=== PATIENT | male | born 1945 | race Caucasian/White ===

== ENCOUNTER 2018-02-22 07:23 | Outpatient (CLI) | payer MEDICARE, OTHER ==
--- NOTE | 2018-02-22 11:16 | XRAY Report ---
Reason: PAIN IN RIGHT KNEE Procedure Date: 02/22/2018 Accession Number: [id number] / [id number] Procedure: XR - Knee 3 View RT CPT Code: FULL RESULT: EXAM: RIGHT KNEE RADIOGRAPHY EXAM DATE: 02/22/2018 07:26 AM. CLINICAL HISTORY: Pain in right knee. COMPARISON: None. TECHNIQUE: 3 views. FINDINGS: Bones: Normal. No fractures or bone lesions. Joints: Mild to moderate narrowing of the weightbearing femorotibial compartments, medial predominance. No joint effusion. Soft Tissues: Normal. No soft tissue swelling. IMPRESSION: Mild to moderate osteoarthrosis. [facility]
== END 2018-02-22 07:24 | disposition home or self-care (01) ==
LOC: DI 07:23
PROVIDERS: ATTEND Family Medicine
DX: M17.11 Unilateral primary osteoarthritis, right knee (principal)

== ENCOUNTER 2018-02-24 08:24 | Outpatient (CLI) | payer MEDICARE, OTHER ==
--- NOTE | 2018-02-24 17:05 | MRI Report ---
Reason: PAIN IN RIGHT KNEE Procedure Date: 02/24/2018 Accession Number: [id number] / [id number] Procedure: MRI - Knee RT W/O CPT Code: FULL RESULT: EXAM: RIGHT KNEE MRI WITHOUT CONTRAST EXAM DATE: 02/24/2018 09:20 AM. CLINICAL HISTORY: Right knee pain posteriorly. COMPARISON: 02/22/2018 radiograph. TECHNIQUE: Multiplanar, multisequence T1-weighted and fluid-sensitive sequences of the knee without contrast. Other: None. FINDINGS: Bones: No fractures or subluxations. No marrow edema. No bone lesions. Minimal tricompartmental osteophytes are present. Articular Cartilage: There is a full-thickness fissure of the central patellar cartilage. The trochlear cartilage is intact. The medial compartment articular cartilage demonstrates moderate thinning. A focal area of full-thickness cartilage loss of the inferior lateral femoral condyle measures 7 x 13 mm. Medial Meniscus: The posterior horn of the medial meniscus demonstrates a horizontal tear (series 901, image 6). A parrot-beak tear is at the inner margin of the posterior horn as well. Lateral Meniscus: The undersurface of the posterior horn of the lateral meniscus has at least a partial thickness horizontal tear (series 901, images 19 through 22). Cruciate Ligaments: The anterior and posterior cruciate ligaments are intact. Collateral Ligaments: The medial collateral and lateral collateral ligamentous structures are intact. Tendons: The quadriceps, patellar, semimembranosus, and popliteus tendons are unremarkable. Musculature: No edema or fatty atrophy. Other: A mild effusion is present. No popliteal cyst. No loose bodies. The medial and lateral retinacula are intact. Prepatellar subcutaneous edema is present. IMPRESSION: 1. Minimal osteoarthritis. 2. Tearing of the medial and lateral menisci. 3. Mild knee effusion. [facility] MUSCULOSKELETAL RADIOLOGY SECTION
== END 2018-02-24 08:25 | disposition home or self-care (01) ==
LOC: DI 08:24
PROVIDERS: ATTEND Family Medicine
DX: M17.11 Unilateral primary osteoarthritis, right knee (principal); M25.461 Effusion, right knee; S83.281A Other tear of lateral meniscus, current injury, right knee, initial encounter; S83.241A Other tear of medial meniscus, current injury, right knee, initial encounter

== ENCOUNTER 2019-06-22 07:53 | Outpatient (CLI) | payer MEDICARE, OTHER ==
[2019-06-23 12:14] LABS: HEPATITIS C ANTIBODY NON-REACTIVE (NON-REACTIVE)
== END 2019-06-22 07:54 | disposition home or self-care (01) ==
LOC: LAB.S 07:53
PROVIDERS: ATTEND Family Medicine
DX: Z12.5 Encounter for screening for malignant neoplasm of prostate (principal); Z11.59 Encounter for screening for other viral diseases
CPT/HCPCS: 36415; 86803; G0103; 84153

== ENCOUNTER 2019-09-08 06:35 | Outpatient (CLI) | payer MEDICARE, OTHER ==
--- NOTE | 2019-09-08 09:39 | Ultrasound Report ---
PROCEDURE: Bladder INDICATIONS: LUTS W/BPH TECHNIQUE: Multilevel sonographic images of the bladder were obtained. COMPARISON: None. FINDINGS: Prevoid volume 2 61 cc. Postvoid residual 1 16 cc. Prostate is enlarged measuring 30 x 42 x 60 cm. Vo lume of 50.4 cc. Bilateral ureteral jets are identified. No bladder masses are identified. IMPRESSION: 1. Prominent post void residual with enlarged prostate as above. Recommend correlation to PSA levels. Reviewed by: Dee Dee Pickering MD on 09/08/2019 9:38 AM PDT Approved by: Dee Dee Pickering MD on 09/08/2019 9:38 AM PDT Station ID: [id number]
--- NOTE | 2019-09-08 09:40 | Ultrasound Report ---
PROCEDURE: Aorta Screening INDICATIONS: SCREENING FOR AAA TECHNIQUE: Real time scanning was performed of the aorta and iliac arteries, with image documentatio n. COMPARISON: None FINDINGS: Aorta: Proximal aortic diameter measures 2.6 x 2.4 cm. Mid-aorta measures 2.2 x 2.0 cm. Distal aor tic diameter is 1.7 x 1.6 cm. Iliac arteries: Right common iliac artery measures 1.1 x 1.1 cm. Left common iliac artery measures 1.2 x 1.0 cm. IMPRESSION: No gross aneurysmal dilation. Reviewed by: Dee Dee Pickering MD on 09/08/2019 9:39 AM PDT Approved by: Dee Dee Pickering MD on 09/08/2019 9:39 AM PDT Station ID: [id number]
== END 2019-09-08 06:36 | disposition home or self-care (01) ==
LOC: DI 06:35
PROVIDERS: ATTEND Family Medicine
DX: Z13.6 Encounter for screening for cardiovascular disorders (principal); N40.1 Benign prostatic hyperplasia with lower urinary tract symptoms; F17.290 Nicotine dependence, other tobacco product, uncomplicated
CPT/HCPCS: 76706; 76857

== ENCOUNTER 2020-07-22 09:30 | Outpatient (CLI) | payer MEDICARE ==
[2020-07-22 12:30] VITALS: BP 160/80
--- NOTE | 2020-07-22 12:30 | SLEEP CARE CONSULTATION ---
Information from patient questionnaire entered by Samantha Alejandre. I have reviewed and concur with the information entered by Samantha Alejandre. This document represents the service I personally performed and the decisions made by me, Bean Haney MD, [facility]. History of Present Illness Service Date and Time: 07/22/2020 0930 Reason for Visit: New patient, Previously diagnosed sleep apnea, sleep apnea on CPAP therapy Chief Complaint: reports: Other (need new CPAP prescription) Usual bedtime: 8 pm Time it takes to fall asleep: 10 min Snores at night: Yes Observed to quit breathing while asleep: No Sleeps alone due to snoring: Yes Number of times waking at night: maybe once Reasons for waking at night: reports: Other (too hot) Toss, Turn, or Twitch while sleeping: No Recalls having dreams: Yes Usually gets out of bed at: 4:30 am Morning headache: No Sleepy or fatigued during the day: Yes Ever fallen asleep while driving: No Takes day naps: Yes Dreams during day naps: No Prior sleep studies: Yes Year and Where: 2005 - [place], [place] Additional HPI information: I had the pleasure of seeing Mr. Greer today regarding obstructive sleep apnea-hypopnea. As you know, he is a 75 year old gentleman who was diagnosed with the sleep-disordered breathing at [facility] in [place] about 5 years ago. The AHI was 27.1. He was prescribed a CPAP device set at 5 15 cmH2 O. He uses every night and all night. The compliance data show usage in 164 out of the past 180 nights, averaging 8.1 hours a night. The > 4 hour compliance rate for the past 30 days is 100%. 91%. The residual AHI is 1.1 and average air leak is 11.4 L/minute. He wears a Respironics DreamWear nasal cushion mask. He gets his supplies from [employer]. He finds the treatment helpful in that he does not snore at all. - Parasomnia Symptoms Ever been unable to move upon waking from sleep: No Walks in sleep: No Talks in sleep: No Ever acted out dreams in sleep: No Ever felt weak in the knees when startled or emotional: No Bothered by creepy, crawly, restless sensations in legs: No Problems with memory or concentration: No CPAP Compliance Data - Data Reviewed with Patient Average duration of nightly device use: 8 hr 7 min Compliance rate %: 91 (180 days) Current pressure setting (cmH2O): 5-15 Average residual AHI: 1.1 Subjective Initial Brady Sleepiness Scale score: 6 (in 2020) Past Medical History Past Medical History: reports: Hypertension, Arrythmia Social History The patient's occupation is a Retired. Patient is and lives in [place]. Have you smoked in the past 12 months: No Cigarettes per day (20/pack): 30 Years of smokin Quit date: 1979 Smoking Pack Years: 24.0 Alcohol use: Yes Alcohol amount and frequency: 2 drinks 3 days a week Caffeine use: Yes Caffeine amount and frequency: 1 cup almost daily Family History Family history of sleep disordered breathing: No Allergies and Home Medications Drug allergies reviewed: Yes Home medication list reviewed: Yes Review of Systems Weight gain over past 5 years: 25 Cardiovascular: reports: high blood pressure, palpitations, chest pain Respiratory: reports: shortness of breath Gastrointestinal: denies: heartburn, difficulty swallowing, nausea, vomitting, diarrhea, abdominal pain, other Urinary: reports: frequency, urgency Neurological: denies: headaches, seizure, head trauma, disorientation, speech dysfunction, gait or balance problems, fainting or unconsciousness, other Psychiatric: reports: other (PTSD) Ear/Nose/Throat: reports: wisdom teeth removed Endocrine: denies: thyroid disease, history of goiter, sluggishness, too hot or cold, excessive thirst, increased appetite, increased urination, unexplained weakness, other Musculoskeletal: reports: neck pain Immunologic: reports: other (Bee stings) Physical Exam Vital signs obtained and entered by: Dr. Haney Blood Pressure: 160/80 Cuff size: regular Heart Rate: 73 O2 Saturation: 99 Height: 6 ft Weight: 250 lb Body Mass Index: 33.9 BMI Classification: Obese Neck circumference: 18.5 Mood/affect: normal HEENT: No craniofacial malformation Impression and Plan IMPRESSION: 1. Obstructive Sleep Apnea-Hypopnea Syndrome, moderate, as previously diagnosed. Narrow oropharynx and obesity are common predisposing factors for obstructive sleep apnea-hypopnea syndrome. The patient has had good treatment compliance all along. The current pressure setting appears effective and comfortable. Because the CPAP is now older than the useful life of 5 years, I will order the patient a new one and make it an autoCPAP set between 5 and 15 cmH2O. Plan: 1. Prescription made for an autoCPAP, heated humidifier, and related supplies. 2. Try to lose weight. 4. Return for follow up after one month of using the CPAP. Counseling Topics: Weight control Visit Type: In Office Time Spent with Patient (minutes): 15 Provider Statement: I spent 100% of the Face to Face Visit with the patient with greater than 50% spent counseling the patient and coordination of care.
== END 2020-07-22 09:31 | disposition home or self-care (01) ==
LOC: SC 09:30
PROVIDERS: ATTEND Internal Medicine Pulmonary Disease
DX: G47.33 Obstructive sleep apnea (adult) (pediatric) (principal); E66.9 Obesity, unspecified; Z68.33 Body mass index [BMI] 33.0-33.9, adult
CPT/HCPCS: 99202; G0463; 99212

== ENCOUNTER 2021-07-28 06:20 | Outpatient (CLI) | payer MEDICARE | END 2021-07-28 06:21 | disposition critical access hospital (66) | LOC: EMS 06:20 | DX: R53.1 Weakness (principal); R47.89 Other speech disturbances | CPT/HCPCS: A0425; A0429 ==

== ENCOUNTER 2021-07-28 06:49 | Emergency (ER) | payer MEDICARE, OTHER ==
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
[2021-07-28] MEDS ORDERED: IOPAMIDOL-300 100 ML VIAL ONE (07:17)
[2021-07-28 07:23] LABS: BASOPHILS # (AUTO) 0.1 10^3/uL (0.0-0.1); BASOPHILS % (AUTO) 0.9 %; EOSINOPHILS # (AUTO) 0.4 10^3/uL (0.0-0.7); EOSINOPHILS % (AUTO) 5.6 %; HCT - HEMATOCRIT 47.9 % (42.0-52.0); LYMPHOCYTES # (AUTO) 1.2 10^3/uL (1.5-3.5); LYMPHOCYTES % (AUTO) 15.5 %; MEAN CORPUSCULAR HEMOGLOBIN 31.3 pg (27.0-31.0); MEAN CORPUSCULAR HGB CONC 33.4 g/dL (32.0-36.0); MEAN CORPUSCULAR VOLUME 93.6 fL (80.0-94.0); MEAN PLATELET VOLUME 10.2 fL (7.4-11.4); MONOCYTES # (AUTO) 0.7 10^3/uL (0.0-1.0); MONOCYTES % (AUTO) 8.9 %; NEUTROPHILS # (AUTO) 5.3 10^3/uL (1.5-6.6); PLT - PLATELET COUNT 216 10^3/uL (130-450); RED BLOOD COUNT 5.12 10^6/uL (4.70-6.10); RED CELL DISTRIBUTION WIDTH 13.6 % (12.0-15.0); WHITE BLOOD COUNT 7.7 x10^3/uL (4.8-10.8)
[2021-07-28 07:25] LABS: ALBUMIN/GLOBULIN RATIO 1.3 (1.0-2.2); BILIRUBIN,TOTAL 1.2 mg/dL (0.2-1.0); CALCIUM 9.1 mg/dL (8.5-10.3); CREATININE 1.4 mg/dL (0.6-1.2); POTASSIUM 4.2 mmol/L (3.5-5.0); TOTAL PROTEIN 7.2 g/dL (6.7-8.2)
[2021-07-28] MEDS ORDERED: IOPAMIDOL-300 100 ML VIAL IVP ONE (07:58)
--- NOTE | 2021-07-28 08:10 | CT Report ---
PROCEDURE: Head W/O Stroke Protocol INDICATIONS: unilateral weakness TECHNIQUE: Noncontrast 4.5 mm thick angled axial sections acquired from the foramen magnum to the vertex, with c oronal reformats. For radiation dose reduction, the following was used: automated exposure control, adjustment of mA and/or kV according to patient size. COMPARISON: FINDINGS: Image quality: Excellent. CSF spaces: Basal cisterns are patent. No extra-axial fluid collections. Ventricles are normal in size and shape. Brain: No midline shift. No intracranial masses or hemorrhage. Collins-white matter interface is norm al. Age-related volume loss and mild small vessel ischemic change. Skull and face: Calvarium and visualized facial bones are intact, without suspicious lesions. Sinuses: Visualized sinuses and mastoids are clear. IMPRESSION: 1. Age-related volume loss small vessel ischemic change, age appropriate. 2. No evidence of acute process. Findings are concordant with preliminary interpretation provided by [facility]. Prelimin uri findings by the initial interpreting radiologist were conveyed to the emergency department on 07/28 at 0731 hours This study fulfills neurological imaging criteria for inclusion or exclusion of acute stroke therapie s based on available published neurological imaging guidelines. Reviewed by: Jan Segovia MD on 07/28/2021 8:09 AM PDT Approved by: Jan Segovia MD on 07/28/2021 8:09 AM PDT Station ID: [id number]
--- NOTE | 2021-07-28 08:24 | CT Report ---
PROCEDURE: ANGIO HEAD W/WO INDICATIONS: unilateral weakness CONTRAST: IV CONTRAST: Isovue 300 ml: 80 PO CONTRAST: *NO PO CONTRAST TECHNIQUE: Precontrast 4.5 mm thick angled axial sections acquired from the foramen magnum to the vertex. Afte r the administration of intravenous contrast, 1 mm thick sections acquired through the [place] of [place] is. Postcontrast 4.5 mm thick sections then re-acquired from the foramen magnum to the vertex. 3-di mensional uibrcak-fjwpndrra-pkkotuhgpz (MIP) and/or volume rendering reformats were acquired of the c entral intracranial vasculature. For radiation dose reduction, the following was used: automated ex posure control, adjustment of mA and/or kV according to patient size. COMPARISON: CTA neck from the same date, noncontrast CT head from the same date. FINDINGS: Image quality: Excellent. Anterior circulation: Intracranial internal carotid arteries are normal in size and flow. The flow within the paired anterior cerebral arteries is normal and symmetric. The flow within the middle cer ebral arteries is normal and symmetric. The anterior communicating artery is seen. No aneurysms are seen. Posterior circulation: Visualized portions of the vertebral arteries demonstrate normal caliber, and join to form a normal appearing basilar artery. Flow within the posterior cerebral arteries is norm al and symmetric. No aneurysms are seen. CSF spaces: Ventricles are normal in size and shape. Basal cisterns are patent. No extra-axial flu id collections. Brain: No midline shift. No intracranial bleeds or masses. Collins-white matter interface appears int act. Age-related volume loss and small vessel ischemic change. Skull and face: Calvarium and facial bones appear intact, without suspicious lesions. Sinuses: There is mucosal thickening involving the bilateral ethmoids as well as the maxillary sinuse s and frontal sinuses. IMPRESSION: 1. Unremarkable CTA head. No aneurysm, occlusion, or focal filling defect. 2. No evidence acute stroke, hemorrhage, or mass. 3. Chronic sinusitis. Above discussed with RAJWINDER BARRETO at the time of dictation on 07.28.21 at 08:18 hours. Reviewed by: Jan Segovia MD on 07/28/2021 8:23 AM PDT Approved by: Jan Segovia MD on 07/28/2021 8:23 AM PDT Station ID: [id number]
--- NOTE | 2021-07-28 08:24 | CT Report ---
PROCEDURE: ANGIO NECK W INDICATIONS: unilateral weakness CONTRAST: IV CONTRAST: Isovue 300 ml: 80 PO CONTRAST: *NO PO CONTRAST TECHNIQUE: After the administration of intravenous contrast, 1.5 mm axial sections acquired from the aortic arch to the [place] of [place]. Coronal 3-D maximum intensity projection (MIP) and/or volume rendering ref ormats were then performed. For radiation dose reduction, the following was used: automated exposur e control, adjustment of mA and/or kV according to patient size. COMPARISON: None. FINDINGS: Image quality: Excellent. Carotid system: The great vessels demonstrate a conventional anatomy as they arise from the aortic a rch. The origins of the common carotid arteries appear patent. The common carotid arteries demonstr ate normal calibers and courses. The bifurcation regions appear normal bilaterally. There is a sever e stenosis of the proximal left internal carotid artery which is soft plaque containing small ulcer. It begins at the carotid bifurcation and extends into the proximal internal carotid artery. It is emanuel roximately 80%. There is a mild, nonflow limiting proximal right internal carotid artery. It is less than 50%. Posterior circulation: The origins of the vertebral arteries appear patent. The more superior porti ons of the vertebral arteries demonstrate normal course and caliber. They join to form a normal appe aring basilar artery. Soft tissues: Visualized neck soft tissues demonstrate no suspicious abnormalities. Visualized thyr oid unremarkable. Bones: No suspicious bony lesions. Visualized cervical spine appears normally aligned. IMPRESSION: 1. Severe left internal carotid artery stenosis, with soft plaque containing small ulcer, measuring a pproximately 80%. 2. Mild, less than 50% proximal right internal carotid artery stenosis. Above discussed with RAJWINDER BARRETO at the time of dictation on 07.28.21 at 08:18 hours. The estimate of stenosis included in the report of the imaging study was calculated using the NASCET method CLINICAL RECOMMENDATION STATEMENTS: In patients <35 years with an ITN detected on CT, MRI, or extrathyroidal ultrasound, the Committee re commends further evaluation with dedicated thyroid ultrasound if the nodule is "e1 cm and has no susp icious imaging features, and if the patient has normal life expectancy. In patients "e35 years with an ITN detected on CT, MRI, or extrathyroidal ultrasound, the Committee r ecommends further evaluation with dedicated thyroid ultrasound if the nodule is "e1.5 cm and has no s uspicious imaging features, and if the patient has normal life expectancy. (ACR, 2014) Reviewed by: Jan Segovia MD on 07/28/2021 8:22 AM PDT Approved by: Jan Segovia MD on 07/28/2021 8:22 AM PDT Station ID: [id number]
[2021-07-28] MEDS ORDERED: ASPIRIN CHEW 81 MG TABLET PO STA (08:58)
[2021-07-28] MEDS ORDERED: CLOPIDOGREL 75 MG TABLET PO STA (08:58)
[2021-07-28] MEDS ORDERED: SODIUM CHLORIDE 0.9% 1,000 ML IV STA (08:58)
[2021-07-28 18:18] VITALS: BP 177/106
== END 2021-07-28 18:37 | disposition short-term general hospital (02) ==
LOC: EDUNIT# → ED 06:49
DX: I65.22 Occlusion and stenosis of left carotid artery (principal); I10 Essential (primary) hypertension
CPT/HCPCS: 36415; 70450; 70496; 70498; 80053; 83690; 85025; 87635; 93005; 99284; 99285; A9270; Q9967

== ENCOUNTER 2021-07-28 18:28 | Outpatient (CLI) | payer MEDICARE | END 2021-07-28 18:29 | disposition short-term general hospital (02) | LOC: EMS 18:28 | PROVIDERS: ATTEND Emergency Medicine | DX: I65.23 Occlusion and stenosis of bilateral carotid arteries (principal) | CPT/HCPCS: A0425; A0428 ==

== ENCOUNTER 2021-08-04 21:20 | Outpatient (CLI) | payer MEDICARE | END 2021-08-04 21:21 | disposition short-term general hospital (02) | LOC: EMS 21:20 | DX: R07.89 Other chest pain (principal) | CPT/HCPCS: A0425; A0427 ==

== ENCOUNTER 2021-12-03 10:57 | Outpatient (CLI) | payer MEDICARE, OTHER ==
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
== END 2021-12-03 10:58 | disposition home or self-care (01) ==
LOC: DI.S 10:57
PROVIDERS: ATTEND Internal Medicine
DX: R93.89 Abnormal findings on diagnostic imaging of other specified body structures (principal); M47.816 Spondylosis without myelopathy or radiculopathy, lumbar region

== ENCOUNTER 2023-02-22 07:47 | Outpatient (CLI) | payer MEDICARE, OTHER ==
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
[2023-02-22 15:42] LABS: BASOPHILS # (AUTO) 0.1 10^3/uL (0.0-0.1); BASOPHILS % (AUTO) 0.8 %; EOSINOPHILS # (AUTO) 0.5 10^3/uL (0.0-0.7); EOSINOPHILS % (AUTO) 5.9 %; HCT - HEMATOCRIT 52.6 % (42.0-52.0); HGB - HEMOGLOBIN 16.5 g/dL (14.0-18.0); LYMPHOCYTES # (AUTO) 1.4 10^3/uL (1.5-3.5); MEAN CORPUSCULAR HEMOGLOBIN 30.6 pg (27.0-31.0); MEAN CORPUSCULAR HGB CONC 31.4 g/dL (32.0-36.0); MEAN CORPUSCULAR VOLUME 97.6 fL (80.0-94.0); MONOCYTES # (AUTO) 0.7 10^3/uL (0.0-1.0); MONOCYTES % (AUTO) 9.6 %; NEUTROPHILS % (AUTO) 65.4 %; PLT - PLATELET COUNT 245 10^3/uL (130-450); RED BLOOD COUNT 5.39 10^6/uL (4.70-6.10); RED CELL DISTRIBUTION WIDTH 13.7 % (12.0-15.0); WHITE BLOOD COUNT 7.7 x10^3/uL (4.8-10.8)
[2023-02-22 15:53] LABS: ESTIMATED AVERAGE GLUCOSE 108 mg/dL (70-100); HEMOGLOBIN A1c% 5.4 % (4.27-6.07)
[2023-02-22 16:16] LABS: ALBUMIN 4.4 g/dL (3.2-5.5); ALBUMIN/GLOBULIN RATIO 1.5 (1.0-2.2); ALKALINE PHOSPHATASE 92 IU/L (42-121); ALT ALANINE AMINOTRANSFERASE 33 IU/L (10-60); AST ASPARTATE AMINOTRANSFERASE 27 IU/L (10-42); BILIRUBIN,TOTAL 1.5 mg/dL (0.2-1.0); BUN - BLOOD UREA NITROGEN 23 mg/dL (6-20); CALCIUM 9.7 mg/dL (8.5-10.3); CARBON DIOXIDE - CO2 29 mmol/L (21-32); CHLORIDE 105 mmol/L (101-111); CHOLESTEROL 158 mg/dL; CREATININE 1.2 mg/dL (0.6-1.3); GFR - MDRD 59 (>89); GLUCOSE 89 mg/dL (74-104); HDL CHOLESTEROL 52 mg/dL; LDL CHOLESTEROL,CALCULATED 75 mg/dL; LDL/HDL RATIO 1.4 (<3.6); POTASSIUM 4.5 mmol/L (3.5-4.5); SODIUM 139 mmol/L (135-145); TOTAL PROTEIN 7.3 g/dL (6.4-8.9); TRIGLYCERIDES 156 mg/dL (48-352); VLDL CHOLESTEROL 31 mg/dL
[2023-02-22 16:53] LABS: THYROID STIMULATING HORMONE 2.37 uIU/mL (0.34-5.60)
== END 2023-02-22 07:48 | disposition home or self-care (01) ==
LOC: DI.S 07:47
PROVIDERS: ATTEND Internal Medicine
DX: M54.50 Low back pain, unspecified (principal); R53.83 Other fatigue; I63.9 Cerebral infarction, unspecified; M51.36 Other intervertebral disc degeneration, lumbar region; M51.35 Other intervertebral disc degeneration, thoracolumbar region; Z18.10 Retained metal fragments, unspecified
CPT/HCPCS: 36415; 80053; 80061; 83036; 83721; 84443; 85025

== ENCOUNTER 2023-04-21 10:56 | Outpatient (CLI) | payer MEDICARE, OTHER | END 2023-04-21 10:57 | disposition home or self-care (01) | LOC: LAB.S 10:56 | PROVIDERS: ATTEND Internal Medicine | DX: Z12.5 Encounter for screening for malignant neoplasm of prostate (principal) | CPT/HCPCS: 36415; G0103; 80053; 80061; 83036; 83721; 84153; 84443; 85025 ==

== ENCOUNTER 2023-05-03 08:55 | Outpatient (CLI) | payer MEDICARE, OTHER ==
--- NOTE | 2023-05-03 20:15 | SLEEP CARE CONSULTATION ---
Information from patient questionnaire entered by Jonathan Bella. I have reviewed and concur with the information entered by Jonathan Bella. This document represents the service I personally performed and the decisions made by me, Bean Haney MD, [facility]. History of Present Illness Service Date and Time: 05/03/2023 0855 Reason for follow up: annual (LAST SEEN 06/2020) Equipment type: CPAP (RESMED NEED MACHINE) Prior sleep studies: Yes Year and Where: 2005 - , [place] HPI additional information: Mr. Greer was diagnosed with moderate obstructive sleep apnea-hypopnea syndrome and returns today for follow up of CPAP therapy. The patient purchased the [employer] Respironics DreamStation 2 autoCPAP from [employer] and was fitted with a Respironics DreamWear nasal cushion mask. He uses the device nightly and all through the night. The compliance report shows that he uses the device 322 nights out of the past 365 nights, averaging 7.8 hours a night. The > 4 hour compliance rate for the past 365 days is 89%. He complains of no particular problem with the device such as soreness on the face, dry nose, epistaxis, nasal congestion or headache. He thinks that the pressure of 5 - 15 cmH2O is comfortable. On the CPAP therapy he notices improvement in his sleep quality, and that he wakes up feeling fresher in the morning and more awake/alert during the day. His notices no snore at all. [place] Sleepiness Scale score is 2. The average residual AHI is 2.9; and average time in large leak per day is 1 minute a night. The 90th percentile pressure is 8.4 cmH2O. Sleep Study - Results Prior sleep studies: Yes Year and Where: 2005 - , [place] Subjective Initial [place] Sleepiness Scale score: 6 (in 2020) Current [place] Sleepiness Scale score: 2 (05/03/23) Allergies and Home Medications Drug allergies reviewed: Yes Home medication list reviewed: Yes Allergy and home medication list: Allergies No Known Drug Allergies Allergy (Verified 04/30/23 09:41) Review of Systems Review of systems same as previous: Yes Physical Exam Vital signs obtained and entered by: JONATHAN Leong MA Blood Pressure: 140/84 (LEFT ARM) Cuff size: regular Heart Rate: 75 O2 Saturation: 98 Height: 6 ft Weight: 246 lb Body Mass Index: 33.3 BMI Classification: Obese Impression and Plan IMPRESSION: 1. Obstructive Sleep Apnea-Hypopnea Syndrome, moderate (AHI was 27.1 six years ago in [facility] [place]) with the patient continuing to do well on nasal CPAP therapy. He has excellent compliance and significant clinical benefits. The current pressure appears effective and comfortable. Overall, he is very satisfied with treatment and plans to continue with it long-term. No adjustment is necessary today. Because he has not been getting supplies from [facility], I will send a new prescription in to the [facility] medical supplier. PLAN: 1. Continue with autoCPAP set at 5 - 15 cm H2O. 2. Try to lose weight 3. Prescription made for supplies. 4. Return in one year for follow up or earlier if there is any problem with the treatment. Counseling Topics: Weight control Follow up with Sleep Care in: 1 year Visit Type: In Office Time Spent with Patient (minutes): 15 Provider Statement: I spent 100% of the Face to Face Visit with the patient with greater than 50% spent counseling the patient and coordination of care.
[2023-05-03 20:24] VITALS: BP 140/84; O2SAT 98
== END 2023-05-03 08:56 | disposition home or self-care (01) ==
LOC: SC 08:55
PROVIDERS: ATTEND Internal Medicine Pulmonary Disease
DX: G47.33 Obstructive sleep apnea (adult) (pediatric) (principal); E66.9 Obesity, unspecified; Z68.33 Body mass index [BMI] 33.0-33.9, adult
CPT/HCPCS: 99212; G0463

== ENCOUNTER 2023-06-03 07:29 | Outpatient (CLI) | payer MEDICARE, OTHER | END 2023-06-03 07:30 | disposition home or self-care (01) | LOC: DI 07:29 | PROVIDERS: ATTEND Internal Medicine | DX: R06.09 Other forms of dyspnea (principal); I77.819 Aortic ectasia, unspecified site | CPT/HCPCS: 93307 ==

== ENCOUNTER 2023-06-04 10:01 | Day surgery (SDC) | payer MEDICARE, OTHER ==
[2023-06-04] MEDS: LACTATED RINGERS 1,000 ML IV ONE ×2 (10:37→12:34)
[2023-06-04] MEDS ORDERED: PROPOFOL 500 MG/50 ML 500 MG/50 ML VIAL ONE (10:52)
--- NOTE | 2023-06-04 11:33 | ANESTHESIA ---
Pre-Anesthesia VS, & Labs - Diagnosis screening, history of polyps - Procedure colonoscopy Vital Signs: Temp Pulse Resp BP Pulse Ox O2 Flow Rate 37 C 90 18 179/99 H 99 06/04/23 10:17 06/04/23 10:17 06/04/23 10:17 06/04/23 10:17 06/04/23 10:17 Height: 6 ft Weight (kg): 109 kg Body Mass Index: 32.5 BMI Classification: Obese - NPO >8 hours Home Medications and Allergies Atorvastatin Calcium [Lipitor] 80 mg PO DAILY 07/28/21 Lisinopril [Zestril] 10 mg PO DAILY 07/28/21 Metoprolol Tartrate [Lopressor] 25 mg PO DAILY 07/28/21 Allergies/Adverse Reactions: Allergies Allergy/AdvReac Type Severity Reaction Status Date / Time No Known Drug Allergies Allergy Verified 05/03/23 09:20 Anes History & Medical History - Anesthetic History Anesthesia Complications: reports: No previous complications - Medical History Cardiovascular: reports: Hypertension, High cholesterol Pulmonary: reports: None, CPAP use Neuro: reports: None, CVA Endocrine/Autoimmune: reports: None Smoking Status: Never smoker - Surgical History General: reports: Colonoscopy Cardiothoracic: reports: Other Gynecologic: reports: Other Orthopedic: reports: Other Exam General: Alert, Oriented x3 Dental: WNL Mouth Opening: Greater than 4 Fingerbreadths Neck Mobility: Normal Mallampati classification: II Thyromental Distance: greater than 6 cm Respiratory: Lungs clear Cardiovascular: Regular rate Plan Anesthesia Type: Total IV Consent for Procedure(s) Verified and Reviewed: Yes Code Status: Attempt Resuscitation ASA classification: 3-Severe systemic disease Is this case an emergency?: No
[2023-06-04 13:07] VITALS: BP 140/98; O2SAT 98
--- NOTE | 2023-06-04 13:33 | ANESTHESIA POST OP EVALUATION ---
Anesthesia Post Eval - Post Anesthesia Eval Vitals: Last Vital Signs Temp 36.1 C L 06/04/23 12:55 Pulse 61 06/04/23 12:55 Resp 14 06/04/23 12:55 BP 140/98 H 06/04/23 12:55 Pulse Ox 98 06/04/23 12:55 O2 Flow Rate CV Function Including HR & BP: Stable Pain Control: Satisfactory Nausea & Vomiting: Negative Mental Status: Baseline Respiratory Status: Airway Patent Hydration Status: Satisfactory Anesthesia Complications: None
== END 2023-06-04 10:02 | disposition home or self-care (01) ==
LOC: SDS 10:01
PROVIDERS: ATTEND Surgery
PROC: 0DBH8ZX Excision of Cecum, Via Natural or Artificial Opening Endoscopic, Diagnostic (ICD-10-PCS; principal; 2023-06-04 11:30)
DX: Z12.11 Encounter for screening for malignant neoplasm of colon (principal); D12.0 Benign neoplasm of cecum; K57.30 Diverticulosis of large intestine without perforation or abscess without bleeding; G47.30 Sleep apnea, unspecified; E66.9 Obesity, unspecified; Z68.34 Body mass index [BMI] 34.0-34.9, adult
CPT/HCPCS: 45380; J7120

== ENCOUNTER 2023-09-07 08:52 | Outpatient (CLI) | payer MEDICARE, OTHER | END 2023-09-07 08:53 | disposition home or self-care (01) | LOC: LAB.S 08:52 | PROVIDERS: ATTEND Urology | DX: R97.20 Elevated prostate specific antigen [PSA] (principal) | CPT/HCPCS: 36415; 84153 ==